=== PATIENT | male | born 1950 | race Asian ===

== ENCOUNTER 2021-08-06 14:10 | Inpatient (IN) | payer MEDICARE, SELFPAY ==
[~2021-08-06 14:10] MED LIST: Iopamidol-370 76% 500 ML 1 ML ONE
[2021-08-06 14:47] LABS: #Eosinphils 0.1 thou/uL (0.0-0.7); #Lymphocytes 1.8 thou/uL (1.20-3.40); #Monocytes 0.4 thou/uL (0.11-0.59); #Neutrophils 3.9 thou/uL (1.40-6.50); %Basophils 0.4 % (0.0-1.0); %Eosinophils 2.4 % (0.0-10.0); %Monocytes 6.1 % (0.0-10.0); %Neutrophils 62.2 % (42.0-75.0); Hemoglobin 15.3 g/dL (14.0-18.0); Mean Corpuscular HGB CONC 33.4 g/dL (32.0-36.0); Mean Corpuscular Hemoglobin 27.8 pg (27.0-31.0); Mean Corpuscular Volume 83.4 fL (78.0-98.0); Mean Platelet Volume 9.7 fL (7.4-10.4); Platelet Count 240 thou/uL (130-400); RBC Distribution Width 12.5 % (11.5-14.5); White Blood Cell (WBC) Count 6.3 thou/uL (4.8-10.8)
[2021-08-06] MEDS ORDERED: Aspirin Chewable 81 MG TAB ONE (14:50)
[2021-08-06 15:01] LABS: ALT (SGPT) 63 U/L (8-55); AST (SGOT) 58 U/L (5-34); Albumin 3.9 g/dL (3.4-4.8); Alkaline Phosphatase 71 U/L (40-110); Anion Gap 16 mmol/L (10-20); BUN (Urea Nitrogen) 12 mg/dL (8.4-25.7); Bilirubin, Total 0.8 mg/dL (0.2-1.2); Calc. Creatinine Clearance 0 mL/min (70-130); Calcium 9.4 mg/dL (7.8-10.44); Carbon Dioxide 20 mmol/L (23-31); Chloride 104 mmol/L (98-107); Globulin 3.5 g/dL (2.4-3.5); Glucose 166 mg/dL (80-115); Potassium 4.8 mmol/L (3.5-5.1); Protein, Total 7.4 g/dL (5.8-8.1); Sodium 135 mmol/L (136-145)
[2021-08-06] MEDS ORDERED: hydrALAZINE 20 MG/ML VIAL ONE (15:56)
[2021-08-06] MEDS ORDERED: Ondansetron PF 4 MG/2 ML Vial IVP PRN (16:32)
[2021-08-06] MEDS ORDERED: Acetaminophen 325 MG TAB PO PRN (16:32)
[2021-08-06] MEDS ORDERED: Ondansetron ODT 4 MG TAB PO PRN (16:32)
[2021-08-06] MEDS ORDERED: Acetaminophen 650 MG Suppository PR PRN (16:32)
[2021-08-06] MEDS ORDERED: hydrALAZINE 20 MG/ML VIAL SLOW IVP PRN (16:36)
[2021-08-06 17:55] LABS: Hemoglobin A1c 8.7 % (4.0-6.0)
[2021-08-06 20:10] VITALS: BMI 26.2
[2021-08-06] MEDS: Atorvastatin Calcium 40 MG TAB PO SCH (20:11)
[2021-08-07 04:21] LABS: #Eosinphils 0.2 thou/uL (0.0-0.7); #Lymphocytes 2.1 thou/uL (1.20-3.40); #Monocytes 0.8 thou/uL (0.11-0.59); #Neutrophils 4.2 thou/uL (1.40-6.50); %Basophils 0.2 % (0.0-1.0); %Eosinophils 2.8 % (0.0-10.0); %Lymphocytes 28.7 % (21.0-51.0); %Monocytes 10.4 % (0.0-10.0); %Neutrophils 57.9 % (42.0-75.0); Mean Corpuscular HGB CONC 33.2 g/dL (32.0-36.0); Mean Corpuscular Hemoglobin 27.3 pg (27.0-31.0); Mean Corpuscular Volume 82.1 fL (78.0-98.0); Mean Platelet Volume 9.8 fL (7.4-10.4); Platelet Count 256 thou/uL (130-400); RBC Distribution Width 12.7 % (11.5-14.5); White Blood Cell (WBC) Count 7.3 thou/uL (4.8-10.8)
[2021-08-07 04:24] LABS: Anion Gap 13 mmol/L (10-20); BUN (Urea Nitrogen) 15 mg/dL (8.4-25.7); Calc. Creatinine Clearance 79 mL/min (70-130); Calcium 9.5 mg/dL (7.8-10.44); Carbon Dioxide 24 mmol/L (23-31); Cardiac Risk 4.2 (Less than 4.5); Chloride 104 mmol/L (98-107); Cholesterol 147 mg/dl (< 200 Desired); Glucose 233 mg/dL (80-115); HDL Cholesterol 35 mg/dL (>60 Neg Risk); LDL Cholesterol, Calculated 96 mg/dL; Potassium 4.7 mmol/L (3.5-5.1); Sodium 136 mmol/L (136-145); Triglycerides 78 mg/dL (Less than 150)
[2021-08-07] MEDS ORDERED: FLU VACC QS2021-22(65YR UP)/PF 240 MCG/0.7 ML SYRINGE IM ONE (09:00)
[2021-08-07] MEDS ORDERED: Dextrose 50% Abboject 50 ML SYRINGE SLOW IVP PRN (09:14)
[2021-08-07] MEDS ORDERED: Dextrose 5% in Water 1,000 ML IV PRN (09:14)
[2021-08-07] MEDS: Aspirin 81 mg Enteric Coated Tablet PO SCH (10:14)
[2021-08-07] MEDS: Enoxaparin Sodium 40 MG/0.4 ML SYRINGE SC SCH (10:16)
[2021-08-07 12:35] LABS: SARS-CoV-2 PCR by NAA Not Detected (NotDetected)
[2021-08-07] MEDS: HumaLOG 300 UNITS/3 ML VIAL SC PRN ×3 (13:22→20:46)
[2021-08-07] MEDS: metFORMIN 500 MG TAB PO SCH (18:12)
[2021-08-07] MEDS: Atorvastatin Calcium 40 MG TAB PO SCH (20:45)
[2021-08-08 06:03] LABS: #Eosinphils 0.3 thou/uL (0.0-0.7); #Lymphocytes 2.4 thou/uL (1.20-3.40); #Monocytes 0.6 thou/uL (0.11-0.59); #Neutrophils 3.3 thou/uL (1.40-6.50); %Basophils 0.7 % (0.0-1.0); %Eosinophils 5.1 % (0.0-10.0); %Lymphocytes 35.6 % (21.0-51.0); %Monocytes 9.2 % (0.0-10.0); %Neutrophils 49.3 % (42.0-75.0); Mean Corpuscular HGB CONC 33.6 g/dL (32.0-36.0); Mean Corpuscular Volume 83.4 fL (78.0-98.0); Mean Platelet Volume 9.3 fL (7.4-10.4); Platelet Count 239 thou/uL (130-400); RBC Distribution Width 12.6 % (11.5-14.5); Red Blood Cell (RBC) Count 5.36 mill/uL (4.70-6.10); White Blood Cell (WBC) Count 6.6 thou/uL (4.8-10.8)
[2021-08-08 06:23] LABS: ALT (SGPT) 39 U/L (8-55); AST (SGOT) 27 U/L (5-34)
[2021-08-08 06:24] LABS: Anion Gap 14 mmol/L (10-20); BUN (Urea Nitrogen) 18 mg/dL (8.4-25.7); Calc. Creatinine Clearance 80 mL/min (70-130); Carbon Dioxide 22 mmol/L (23-31); Chloride 104 mmol/L (98-107); Glucose 136 mg/dL (80-115); Potassium 4.7 mmol/L (3.5-5.1); Sodium 135 mmol/L (136-145)
[2021-08-08] MEDS: Lisinopril 10 MG TAB PO SCH (08:23)
[2021-08-08] MEDS: Enoxaparin Sodium 40 MG/0.4 ML SYRINGE SC SCH (08:23)
[2021-08-08] MEDS: metFORMIN 500 MG TAB PO SCH ×2 (08:23→15:33)
[2021-08-08] MEDS: Aspirin 81 mg Enteric Coated Tablet PO SCH (08:23)
[2021-08-08] MEDS: Amlodipine 5 MG TAB PO SCH (12:15)
[2021-08-08] MEDS: HumaLOG 300 UNITS/3 ML VIAL SC PRN (12:16)
[2021-08-08] MEDS: Atorvastatin Calcium 40 MG TAB PO SCH (21:46)
[2021-08-08] MEDS ORDERED: HumaLOG 300 UNITS/3 ML VIAL SC PRN (22:07)
[2021-08-09] MEDS: HumaLOG 300 UNITS/3 ML VIAL SC PRN ×2 (06:13→17:40)
[2021-08-09 06:16] LABS: #Eosinphils 0.2 thou/uL (0.0-0.7); #Lymphocytes 2.2 thou/uL (1.20-3.40); #Monocytes 0.9 thou/uL (0.11-0.59); %Basophils 0.3 % (0.0-1.0); %Lymphocytes 23.4 % (21.0-51.0); %Monocytes 9.4 % (0.0-10.0); %Neutrophils 64.9 % (42.0-75.0); Mean Corpuscular Hemoglobin 27.3 pg (27.0-31.0); Mean Corpuscular Volume 82.5 fL (78.0-98.0); Mean Platelet Volume 9.2 fL (7.4-10.4); Platelet Count 256 thou/uL (130-400); RBC Distribution Width 12.4 % (11.5-14.5); Red Blood Cell (RBC) Count 5.49 mill/uL (4.70-6.10); White Blood Cell (WBC) Count 9.3 thou/uL (4.8-10.8)
[2021-08-09 06:25] LABS: Anion Gap 13 mmol/L (10-20); BUN (Urea Nitrogen) 19 mg/dL (8.4-25.7); Calc. Creatinine Clearance 86 mL/min (70-130); Calcium 9.1 mg/dL (7.8-10.44); Carbon Dioxide 23 mmol/L (23-31); Chloride 103 mmol/L (98-107); Glucose 150 mg/dL (80-115); Potassium 4.7 mmol/L (3.5-5.1); Sodium 134 mmol/L (136-145)
[2021-08-09] MEDS: Aspirin 81 mg Enteric Coated Tablet PO SCH (09:00)
[2021-08-09] MEDS: metFORMIN 500 MG TAB PO SCH ×2 (09:01→17:40)
[2021-08-09] MEDS: Enoxaparin Sodium 40 MG/0.4 ML SYRINGE SC SCH (09:02)
[2021-08-09] MEDS: Lisinopril 10 MG TAB PO SCH (09:02)
[2021-08-09] MEDS: Amlodipine 5 MG TAB PO SCH (12:39)
[2021-08-09] MEDS: Losartan 25 MG TAB PO SCH (12:39)
[2021-08-09] MEDS: Atorvastatin Calcium 40 MG TAB PO SCH (20:53)
[2021-08-10 06:01] LABS: Anion Gap 15 mmol/L (10-20); BUN (Urea Nitrogen) 16 mg/dL (8.4-25.7); Calc. Creatinine Clearance 89 mL/min (70-130); Calcium 8.8 mg/dL (7.8-10.44); Carbon Dioxide 22 mmol/L (23-31); Chloride 104 mmol/L (98-107); Glucose 145 mg/dL (80-115); Potassium 4.7 mmol/L (3.5-5.1); Sodium 136 mmol/L (136-145)
[2021-08-10] MEDS: Amlodipine 5 MG TAB PO SCH (09:07)
[2021-08-10] MEDS: metFORMIN 500 MG TAB PO SCH ×2 (09:07→17:22)
[2021-08-10] MEDS: Enoxaparin Sodium 40 MG/0.4 ML SYRINGE SC SCH (09:08)
[2021-08-10] MEDS: Losartan 25 MG TAB PO SCH (09:08)
[2021-08-10] MEDS: Aspirin 81 mg Enteric Coated Tablet PO SCH (09:09)
[2021-08-10] MEDS: HumaLOG 300 UNITS/3 ML VIAL SC PRN (12:22)
[2021-08-10] MEDS: Atorvastatin Calcium 40 MG TAB PO SCH (21:04)
[2021-08-11 06:12] LABS: Anion Gap 14 mmol/L (10-20); BUN (Urea Nitrogen) 17 mg/dL (8.4-25.7); Calc. Creatinine Clearance 88 mL/min (70-130); Calcium 8.6 mg/dL (7.8-10.44); Carbon Dioxide 22 mmol/L (23-31); Chloride 104 mmol/L (98-107); Glucose 130 mg/dL (80-115); Potassium 4.5 mmol/L (3.5-5.1); Sodium 135 mmol/L (136-145)
[2021-08-11] MEDS: Amlodipine 5 MG TAB PO SCH (08:18)
[2021-08-11] MEDS: Enoxaparin Sodium 40 MG/0.4 ML SYRINGE SC SCH (08:18)
[2021-08-11] MEDS: metFORMIN 500 MG TAB PO SCH ×2 (08:18→17:32)
[2021-08-11] MEDS: Aspirin 81 mg Enteric Coated Tablet PO SCH (08:18)
[2021-08-11] MEDS: Losartan 25 MG TAB PO SCH (08:19)
[2021-08-11 14:11] LABS: Phosphorus 2.7 mg/dL (2.3-4.7)
[2021-08-11 22:07] LABS: Troponin I 0.019 ng/mL (< 0.028)
[2021-08-11] MEDS: Atorvastatin Calcium 40 MG TAB PO SCH (22:29)
[2021-08-12 01:48] LABS: Troponin I 0.015 ng/mL (< 0.028)
[2021-08-12 05:22] LABS: Anion Gap 14 mmol/L (10-20); BUN (Urea Nitrogen) 16 mg/dL (8.4-25.7); Calc. Creatinine Clearance 88 mL/min (70-130); Calcium 8.5 mg/dL (7.8-10.44); Carbon Dioxide 20 mmol/L (23-31); Chloride 106 mmol/L (98-107); Glucose 140 mg/dL (80-115); Potassium 4.4 mmol/L (3.5-5.1); Sodium 136 mmol/L (136-145)
[2021-08-12 05:29] LABS: Troponin I 0.012 ng/mL (< 0.028)
[2021-08-12] MEDS ORDERED: ADENOSINE 60 MG/20 ML VIAL ONE (09:03)
[2021-08-12] MEDS: Losartan 25 MG TAB PO SCH (11:09)
[2021-08-12] MEDS: Amlodipine 5 MG TAB PO SCH (11:09)
[2021-08-12] MEDS: Enoxaparin Sodium 40 MG/0.4 ML SYRINGE SC SCH (11:10)
[2021-08-12] MEDS: metFORMIN 500 MG TAB PO SCH ×2 (11:10→17:59)
[2021-08-12] MEDS: Aspirin 81 mg Enteric Coated Tablet PO SCH (11:10)
[2021-08-12] MEDS: HumaLOG 300 UNITS/3 ML VIAL SC PRN (11:46)
[2021-08-12] MEDS: Atorvastatin Calcium 40 MG TAB PO SCH (21:01)
[2021-08-13 06:29] LABS: Anion Gap 12 mmol/L (10-20); BUN (Urea Nitrogen) 16 mg/dL (8.4-25.7); Calc. Creatinine Clearance 96 mL/min (70-130); Calcium 8.6 mg/dL (7.8-10.44); Carbon Dioxide 23 mmol/L (23-31); Chloride 107 mmol/L (98-107); Glucose 113 mg/dL (80-115); Potassium 4.6 mmol/L (3.5-5.1); Sodium 137 mmol/L (136-145)
[2021-08-13] MEDS: Enoxaparin Sodium 40 MG/0.4 ML SYRINGE SC SCH (09:05)
[2021-08-13] MEDS: Losartan 25 MG TAB PO SCH (09:06)
[2021-08-13] MEDS: metFORMIN 500 MG TAB PO SCH ×2 (09:06→18:17)
[2021-08-13] MEDS: Aspirin 81 mg Enteric Coated Tablet PO SCH (09:06)
[2021-08-13] MEDS: Amlodipine 5 MG TAB PO SCH (09:06)
[2021-08-13] MEDS: Atorvastatin Calcium 40 MG TAB PO SCH (20:34)
[2021-08-14 05:44] LABS: Anion Gap 10 mmol/L (10-20); BUN (Urea Nitrogen) 16 mg/dL (8.4-25.7); Calc. Creatinine Clearance 93 mL/min (70-130); Calcium 8.6 mg/dL (7.8-10.44); Carbon Dioxide 25 mmol/L (23-31); Chloride 106 mmol/L (98-107); Glucose 131 mg/dL (80-115); Potassium 4.4 mmol/L (3.5-5.1); Sodium 137 mmol/L (136-145)
[2021-08-14] MEDS: Enoxaparin Sodium 40 MG/0.4 ML SYRINGE SC SCH (10:21)
[2021-08-14] MEDS: Losartan 25 MG TAB PO SCH (10:22)
[2021-08-14] MEDS: Aspirin 81 mg Enteric Coated Tablet PO SCH (10:22)
[2021-08-14] MEDS: metFORMIN 500 MG TAB PO SCH ×2 (10:22→17:48)
[2021-08-14] MEDS: Amlodipine 5 MG TAB PO SCH (10:23)
[2021-08-14] MEDS ORDERED: Losartan 25 MG TAB PO SCH (11:15)
[2021-08-14] MEDS: Atorvastatin Calcium 40 MG TAB PO SCH (20:44)
[2021-08-14 22:50] LABS: SARS-CoV-2 PCR by NAA Not Detected (NotDetected)
[2021-08-15 06:40] LABS: Anion Gap 12 mmol/L (10-20); BUN (Urea Nitrogen) 16 mg/dL (8.4-25.7); Calc. Creatinine Clearance 91 mL/min (70-130); Calcium 8.4 mg/dL (7.8-10.44); Carbon Dioxide 22 mmol/L (23-31); Chloride 106 mmol/L (98-107); Glucose 115 mg/dL (80-115); Potassium 4.3 mmol/L (3.5-5.1); Sodium 136 mmol/L (136-145)
[2021-08-15] MEDS: metFORMIN 500 MG TAB PO SCH ×2 (07:53→16:23)
[2021-08-15] MEDS: Losartan 25 MG TAB PO SCH (08:01)
[2021-08-15] MEDS: Enoxaparin Sodium 40 MG/0.4 ML SYRINGE SC SCH (08:01)
[2021-08-15] MEDS: Aspirin 81 mg Enteric Coated Tablet PO SCH (08:02)
[2021-08-15] MEDS: Amlodipine 5 MG TAB PO SCH ×2 (08:02→12:19)
[2021-08-15] MEDS: Atorvastatin Calcium 40 MG TAB PO SCH (20:15)
[2021-08-16 05:48] LABS: Anion Gap 13 mmol/L (10-20); BUN (Urea Nitrogen) 15 mg/dL (8.4-25.7); Calc. Creatinine Clearance 93 mL/min (70-130); Calcium 8.9 mg/dL (7.8-10.44); Carbon Dioxide 22 mmol/L (23-31); Chloride 108 mmol/L (98-107); Glucose 126 mg/dL (80-115); Potassium 4.4 mmol/L (3.5-5.1); Sodium 139 mmol/L (136-145)
[2021-08-16] MEDS: Losartan 25 MG TAB PO SCH (08:15)
[2021-08-16] MEDS: Amlodipine 5 MG TAB PO SCH (08:15)
[2021-08-16] MEDS: Aspirin 81 mg Enteric Coated Tablet PO SCH (08:15)
[2021-08-16] MEDS: Enoxaparin Sodium 40 MG/0.4 ML SYRINGE SC SCH (08:16)
[2021-08-16] MEDS: metFORMIN 500 MG TAB PO SCH ×2 (08:16→17:13)
[2021-08-16] MEDS: HumaLOG 300 UNITS/3 ML VIAL SC PRN (11:30)
[2021-08-16 16:44] VITALS: BP 151/72; TEMP 97.7
== END 2021-08-16 17:45 | DRG 65 ==
LOC: ERS 14:10 → 3SE 15:32 → OBSVTOIN 08-07 12:52 → 3SW 08-14 10:19 → NEURO 08-14 10:39 → 3SE 08-14 10:42 → NEURO 08-14 10:43
PROVIDERS: ADMIT Student in an Organized Health Care Education/Training Program; ATTEND Student in an Organized Health Care Education/Training Program
DX: I63.9 Cerebral infarction, unspecified (principal); G81.91 Hemiplegia, unspecified affecting right dominant side; I47.2 Ventricular tachycardia; I42.2 Other hypertrophic cardiomyopathy; Z20.822 Contact with and (suspected) exposure to COVID-19; Z23 Encounter for immunization; R29.703 NIHSS score 3; I10 Essential (primary) hypertension; I44.0 Atrioventricular block, first degree; R74.01 Elevation of levels of liver transaminase levels; I08.1 Rheumatic disorders of both mitral and tricuspid valves; E11.65 Type 2 diabetes mellitus with hyperglycemia; E78.5 Hyperlipidemia, unspecified; R05.9 Cough, unspecified; R19.7 Diarrhea, unspecified; Z91.19 Patient's noncompliance with other medical treatment and regimen; Z80.9 Family history of malignant neoplasm, unspecified; Z79.899 Other long term (current) drug therapy; Z79.84 Long term (current) use of oral hypoglycemic drugs
CPT/HCPCS: 36415; 36416; 70450; 70496; 70498; 70551; 74230; 78452; 80048; 80053; 80061; 83036; 83630; 83735; 84100; 84450; 84460; 84484; 85025; 87045; 87046; 87324; 87427; 87449; 90471; 90662; 90732; 93005; 93017; 93306; 96372; 96374; A9500; G0008; G0009; G0378; J0153; J0360; J1650; J1815; Q9967; U0003; U0005